=== PATIENT | female | born 1945 | race African-American/Black ===

== ENCOUNTER → 2017-01-13 | Outpatient (CLI) | payer MEDICARE, OTHER | LOC: MAMO 12:55 | DX: Z12.31 Encounter for screening mammogram for malignant neoplasm of breast (principal) | CPT/HCPCS: G0202 ==

== ENCOUNTER → 2020-11-26 | Outpatient (CLI) | payer MEDICARE, OTHER ==
[~2020-11-26] MED LIST: CEFPODOXIME PR200 MG PO; COREG6.25 MG PO; COZAAR100 MG PO; DICLOFENAC SOD100 GM TOP; HUMALOG100 UNIT/1 SC; HYDROCHLOROTH12.5 M1 PO; K-DUR TAB 20 M20 MEQ PO; LIPITOR20 MG PO; NORVASC5 MG PO; TOUJEO MAX300 UNIT/1 SQ; TRULICITY1.5 MG/0.5 SQ
== END ==
LOC: MAMO 11:27
DX: Z12.31 Encounter for screening mammogram for malignant neoplasm of breast (principal)
CPT/HCPCS: 77063; 77067

== ENCOUNTER → 2021-06-10 | Outpatient (CLI) | payer MEDICARE, OTHER | LOC: EXRD 11:01 | DX: Z13.820 Encounter for screening for osteoporosis (principal); Z78.0 Asymptomatic menopausal state; M85.88 Other specified disorders of bone density and structure, other site; M85.80 Other specified disorders of bone density and structure, unspecified site | CPT/HCPCS: 77080 ==

== ENCOUNTER → 2021-11-14 | Outpatient (CLI) | payer MEDICARE, OTHER | LOC: EXRD 11:25 | DX: M25.552 Pain in left hip (principal); M51.36 Other intervertebral disc degeneration, lumbar region | CPT/HCPCS: 73502 ==

== ENCOUNTER → 2021-11-29 | Outpatient (CLI) | payer MEDICARE, OTHER | LOC: MAMO 11:18 | DX: Z12.31 Encounter for screening mammogram for malignant neoplasm of breast (principal) | CPT/HCPCS: 77063; 77067 ==

== ENCOUNTER → 2022-02-03 | Outpatient (CLI) | payer MEDICARE, OTHER | LOC: KOH-I 09:52 | DX: R10.11 Right upper quadrant pain (principal); R10.12 Left upper quadrant pain; L98.8 Other specified disorders of the skin and subcutaneous tissue | CPT/HCPCS: 74176 ==

== ENCOUNTER 2022-02-07 13:08 | Inpatient (IN) | payer MEDICARE, OTHER ==
[~2022-02-07] VITALS: Ht 152.4 cm; Wt 61.2 kg
[~2022-02-07 13:08] MED LIST changes: -NORVASC5 MG PO; -TRULICITY1.5 MG/0.5 SQ
[2022-02-07 14:02] LABS: HEMOGLOBIN 11.6 gm/dl (12.3-15.3); RED BLOOD COUNT 3.91 M/UL (4.00-5.10); WHITE BLOOD COUNT 7.4 K/UL (4.5-11.0)
[2022-02-07 14:28] LABS: BUN/CREATININE RATIO 21 (0-10)
[2022-02-08 02:40] LABS: HEMOGLOBIN 10.2 gm/dl (12.3-15.3); WHITE BLOOD COUNT 8.3 K/UL (4.5-11.0)
[2022-02-08 02:47] LABS: RED BLOOD COUNT 3.49 M/UL (4.00-5.10)
[2022-02-08 03:04] LABS: BUN/CREATININE RATIO 17 (0-10)
[2022-02-08] MEDS ORDERED: TOUJEO MAX300 UNIT/1 SC (10:04)
[2022-02-08] MEDS ORDERED: DOCUSATE SODIU100 MG PO (10:04)
[2022-02-08] MEDS ORDERED: ARTHRITIS PAIN150 GM TOP (10:06)
[2022-02-08] MEDS ORDERED: FAMOTIDINE20 MG PO (10:08)
[2022-02-08] MEDS ORDERED: VITAMIN D325 MC6 PO (10:08)
[2022-02-08] MEDS ORDERED: LOSARTAN POTAS100 MG PO (10:09)
[2022-02-08] MEDS ORDERED: XALATAN2.5 ML EYEBOTH (10:10)
[2022-02-08] MEDS ORDERED: BETIMOL15 ML EYEBOTH (10:11)
[2022-02-08] MEDS ORDERED: BRIMONIDINE TAR15 M1 EYEBOTH (10:12)
[2022-02-08] MEDS ORDERED: LIPITOR TAB 2020 MG PO (10:21)
[2022-02-08] MEDS ORDERED: NOVOLOG 10100 UNITS/ SQ (12:42)
[2022-02-08] MEDS ORDERED: NORVASC10 MG PO (21:04)
[2022-02-08] MEDS ORDERED: TRULICITY1.5 MG/0.5 SQ (21:08)
[2022-02-09 04:33] LABS: BUN/CREATININE RATIO 15 (0-10)
[2022-02-09 04:36] LABS: RED BLOOD COUNT 3.44 M/UL (4.00-5.10); WHITE BLOOD COUNT 7.1 K/UL (4.5-11.0)
--- NOTE | 2022-02-09 16:14 | NUR ---
REPORT CALLED TO [facility] ON 5TH FLOOR
[2022-02-10 03:18] LABS: HEMOGLOBIN 10.4 gm/dl (12.3-15.3); RED BLOOD COUNT 3.57 M/UL (4.00-5.10); WHITE BLOOD COUNT 6.1 K/UL (4.5-11.0)
[2022-02-10] MEDS ORDERED: LANTUS INS100 UTS/M1 SQ ×2 (11:51→12:50)
[2022-02-10] MEDS ORDERED: DEX4 GLUCOSE4 GM PO (12:44)
[2022-02-10] MEDS ORDERED: HUMALOG 10100 UNITS/ SC (12:44)
[2022-02-10] MEDS ORDERED: LASIX TAB 20 MG20 MG PO (12:59)
[2022-02-10] MEDS ORDERED: K-TAB ER10 MEQ PO (12:59)
== END 2022-02-10 13:18 | disposition home health service (06) | DRG 639 ==
LOC: ER1 13:08 → PROG CARE 17:20 → M/S 17:20 → CDU 17:20 → M/S 19:58 → PROG CARE 21:37 → M/S 02-09 17:00
PROVIDERS: Physician Assistant Medical; Student in an Organized Health Care Education/Training Program; ADMIT Internal Medicine
DX: E11.649 Type 2 diabetes mellitus with hypoglycemia without coma (principal); I10 Essential (primary) hypertension; K21.9 Gastro-esophageal reflux disease without esophagitis; Z20.822 Contact with and (suspected) exposure to COVID-19; E78.5 Hyperlipidemia, unspecified; E87.6 Hypokalemia; Z79.4 Long term (current) use of insulin; Z87.891 Personal history of nicotine dependence; Z83.3 Family history of diabetes mellitus
CPT/HCPCS: 36415; 70450; 71045; 80048; 80053; 82550; 82553; 82962; 83036; 83735; 84484; 85025; 85027; 93005; 96374; 99285; J1650; U0002

== ENCOUNTER 2022-04-04 17:29 | Emergency (ER) | payer MEDICARE, OTHER ==
[~2022-04-04 17:29] MED LIST changes: +ARTHRITIS PAIN150 GM TOP; +BETIMOL15 ML EYEBOTH; +BRIMONIDINE TAR15 M1 EYEBOTH; +DEX4 GLUCOSE4 GM PO; +DOCUSATE SODIU100 MG PO; +FAMOTIDINE20 MG PO; +HUMALOG 10100 UNITS/ SC; +K-TAB ER10 MEQ PO; +LANTUS INS100 UTS/M1 SQ; +LASIX TAB 20 MG20 MG PO; +LIPITOR TAB 2020 MG PO; +LOSARTAN POTAS100 MG PO; +NORVASC10 MG PO; +NOVOLOG 10100 UNITS/ SQ; +TOUJEO MAX300 UNIT/1 SC; +TRULICITY1.5 MG/0.5 SQ; +VITAMIN D325 MC6 PO; +XALATAN2.5 ML EYEBOTH
[2022-04-04 21:44] LABS: HEMOGLOBIN 11.1 gm/dl (12.3-15.3); RED BLOOD COUNT 3.73 M/UL (4.00-5.10)
== END 2022-04-04 22:55 | disposition home or self-care (01) ==
LOC: ER1 17:29
PROVIDERS: Student in an Organized Health Care Education/Training Program
DX: E11.649 Type 2 diabetes mellitus with hypoglycemia without coma (principal); S00.83XA Contusion of other part of head, initial encounter; I10 Essential (primary) hypertension; W17.89XA Other fall from one level to another, initial encounter; Y92.009 Unspecified place in unspecified non-institutional (private) residence as the place of occurrence of the external cause
CPT/HCPCS: 70450; 71045; 80053; 82550; 82553; 82962; 84484; 85025; 93005; 96374; 99285

== ENCOUNTER → 2022-05-13 | Outpatient (CLI) | payer MEDICARE, OTHER ==
[2022-05-13 14:27] LABS: RED BLOOD COUNT 4.01 M/UL (4.00-5.10); WHITE BLOOD COUNT 8.3 K/UL (4.5-11.0)
[2022-05-13 15:02] LABS: BUN/CREATININE RATIO 25 (0-10)
== END ==
LOC: LAB 13:40
PROVIDERS: Family Medicine
DX: E55.9 Vitamin D deficiency, unspecified (principal); E78.2 Mixed hyperlipidemia; I10 Essential (primary) hypertension
CPT/HCPCS: 36415; 80053; 80061; 83735; 85027

== ENCOUNTER → 2022-07-30 | Outpatient (CLI) | payer MEDICARE, OTHER | LOC: HEART 5 07-29 13:00 | DX: R06.02 Shortness of breath (principal); I08.1 Rheumatic disorders of both mitral and tricuspid valves; I27.20 Pulmonary hypertension, unspecified | CPT/HCPCS: 93306 ==

== ENCOUNTER → 2022-08-05 | Day surgery (SDC) | payer MEDICARE, OTHER | END | disposition home or self-care (01) | LOC: OR 07:07 | DX: Z12.11 Encounter for screening for malignant neoplasm of colon (principal); D12.0 Benign neoplasm of cecum; K57.30 Diverticulosis of large intestine without perforation or abscess without bleeding; K64.1 Second degree hemorrhoids; K21.00 Gastro-esophageal reflux disease with esophagitis, without bleeding; K44.9 Diaphragmatic hernia without obstruction or gangrene; K31.9 Disease of stomach and duodenum, unspecified; R63.4 Abnormal weight loss; I10 Essential (primary) hypertension; M19.90 Unspecified osteoarthritis, unspecified site; E11.9 Type 2 diabetes mellitus without complications; Z79.4 Long term (current) use of insulin; Z79.899 Other long term (current) drug therapy; Z68.1 Body mass index [BMI] 19.9 or less, adult | CPT/HCPCS: 82962; J2704; J7040 ==